=== PATIENT | male | born 1990 | race African-American/Black ===

== ENCOUNTER 2018-02-02 21:37 | Emergency (ER) | payer OTHER ==
[~2018-02-02] VITALS: Ht 170.2 cm; Wt 68.0 kg
[~2018-02-02 21:37] MED LIST: AUGMENTIN 875875 M1 PO; IBUPROFEN 600600 M1 PO; KETOCONAZOLE60 GM TP; NAPROSYN500 MG PO; NORFLEX100 MG PO; PREDNISONE 20 M20 M1 PO
[2018-02-02 22:23] LABS: URINE BILIRUBIN NEGATIVE (Negative); URINE BLOOD TRACE (Negative); URINE CLARITY CLEAR; URINE COLOR YELLOW; URINE GLUCOSE-RANDOM* NEGATIVE (Negative); URINE KETONES TRACE (Negative); URINE NITRITE-REFLEX NEGATIVE (Negative); URINE PROTEIN (DIPSTICK) NEGATIVE (Negative); URINE SPECIFIC GRAVITY 1.025 (1.005-1.035); URINE UROBILINOGEN 0.2 E.U./dl (0.2-1.0)
[2018-02-02 22:24] LABS: URINE LEUKOCYTES-REFLEX 1+ (Negative)
[2018-02-02 22:29] LABS: BACTERIA-REFLEX 1-9 Few /HPF (None Seen); CALCIUM OXALATE 0-3 Few /LPF (None Seen); CASTS None Seen /LPF (None Seen); CRYSTALS None Seen /LPF (None Seen); MUCUS 0-3 Light strn/LPF (None Seen); SQUAMOUS 4-10 Moderate /LPF (0-3); URINE RBC 0-2 Rare /HPF (0-2); URINE WBC-REFLEX 6-15 Few /HPF (0-5)
[2018-02-02] MEDS ORDERED: IBUPROFEN 200200 M1 PO (23:17)
[2018-02-02 23:43] LABS: ABSOLUTE NEUTROPHILS 3.1 thou/uL (1.4-8.2); BASOPHILS 0.4 % (0.0-2.0); EOSINOPHILS 0.8 % (0.0-3.0); HEMATOCRIT 43.5 % (42.0-52.0); HEMOGLOBIN 14.8 gm/dL (14.0-18.0); LYMPHOCYTES 33.8 % (24.0-44.0); MCH 32.1 pg (26.0-34.0); MCV 94.6 fL (80.0-100.0); MONOCYTES 9.5 % (1.0-8.0); PLATELET COUNT 270 thou/uL (150-400); POLYS 55.5 % (36.0-66.0); RDW 13.5 % (10.5-14.5); WBC 5.6 thou/uL (4.0-11.0)
[2018-02-02 23:55] LABS: CREATININE 1.2 mg/dL (0.7-1.3); POTASSIUM 3.8 mmol/L (3.5-5.1)
[2018-02-03 00:01] LABS: ALBUMIN 4.8 g/dL (3.4-5.0); TOTAL BILIRUBIN 0.5 mg/dL (<0.1-1.0); TOTAL PROTEIN 8.7 g/dL (6.4-8.2)
[2018-02-03 01:33] VITALS: BP 125/76
== END 2018-02-03 01:30 | disposition home or self-care (01) ==
LOC: ER 21:37
PROVIDERS: Emergency Medicine
DX: K40.90 Unilateral inguinal hernia, without obstruction or gangrene, not specified as recurrent (principal); R82.71 Bacteriuria

== ENCOUNTER 2018-12-10 00:21 | Emergency (ER) | payer OTHER ==
[~2018-12-10] VITALS: Ht 167.6 cm; Wt 68.0 kg
[2018-12-10 00:21] VITALS: BP 115/70
[~2018-12-10 00:21] MED LIST changes: +IBUPROFEN 200200 M1 PO
[2018-12-10] MEDS ORDERED: NAPROSYN500 MG PO (01:23)
== END 2018-12-10 01:45 | disposition home or self-care (01) ==
LOC: ER 00:21
DX: M26.602 Left temporomandibular joint disorder, unspecified (principal)

== ENCOUNTER 2019-03-18 23:17 | Emergency (ER) | payer OTHER ==
[~2019-03-18] VITALS: Ht 167.6 cm; Wt 72.6 kg
[2019-03-18 23:19] VITALS: BP 139/82
== END 2019-03-19 00:19 | disposition home or self-care (01) ==
LOC: ER 23:17
DX: R36.9 Urethral discharge, unspecified (principal)